=== PATIENT | female | born 1970 | race Hispanic/Latino ===

== ENCOUNTER 2019-10-22 19:23 | Emergency (ER) | payer OTHER ==
--- OUTSIDE RECORDS SUMMARY | 2019-10-22 19:44 | XMS REPORT | Continuity of Care Document ---
:1970 Author Organization [facility] Address [address] [place] [address] Allergies, Adverse Reactions, Alerts Allergen Type Severity Reaction Last Updated Verified Status Codeine ([id number]) Allergy Moderate HIVES June 24, 2019 No Active Hydrocodone ([id number]) Allergy Moderate HIVES June 24 020 No Active Medications No known medications. Problems No problem information available. Procedures Procedure Date Performed Status X-ray of chest, single view June 24, 2019 completed Relevant Diagnostic Tests and/or Laboratory Data Laboratory Results Test Date/Time Result Interpretation Reference Result Comment Performing Range Site White Blood Count June 10.2 4.0-11.5 MR , 2019 7:[place] [address] Red Blood Count June 4.98 3.80-5.20 [facility] , 2019 7:43[facility] [place] [address] Hemoglobin [place] 14.4 10.5-15.7 [facility], 2019 7:43[place] [address] Hematocrit [place] 43.3 34.0-50.0 [facility], 2019 7:43[facility] [place] X [address] Mean Corpuscular Janett 86.9 86-100 [facility], Volume 2019 7:43[facility] [place] [address] Mean Corpuscular June 28.9 26.2-33.4 [facility], Hemoglobin 2019 7:43[facility] [place] [address] Mean Corpuscular June 33.3 30-34 [facility], Hemoglobin 2019 Concent 7:43[place] [address] Red Cell June 12.8 12.0-15.5 [facility], Distribution 2019 Width 7:43[place] [address] Platelet Count June 236 165-450 [facility], 2019 7:43[facility] [place] [address] Mean Platelet Janett 8.6 9.4-12.6 [facility], [address] Volume 2019 7:43[place] [address] Neutrophils (%) Janett 83.1 44.4-80.1 [facility] , [address] (Auto) 2019 7:43[place] [address] Immature Janett 0.5 0.0-0.4 [facility], [address] Granulocyte % 2019 (Auto) 7:43[facility] [place] [address] Lymphocytes (%) Janett 12.7 10.0-50.0 [facility] , [address] (Auto) 2019 7:43[facility] [place] [address] Monocytes (%) [place]ett 3.3 3.6-12.0 [facility], [address] (Auto) 2019 7:43[facility] [place] [address] Eosinophils (%) [place]ett 0.1 0.0-5.4 [facility] , [address] (Auto) 2019 7:43[facility] [place] [address] Basophils (%) Janett 0.3 0.1-1.2 [facility], [address] (Auto) 2019 7:43[facility] [place] [address] Neutrophils # Janett 8.44 1.56-6.13 [facility], [address] (Auto) 2019 7:43[facility] [place] [address] Absolute Immature [place] 0.1 0.0-0.03 [facility], [address] Granulocyte (auto 2019 7:43[facility] [place] [address] Lymphocytes # Janett 1.3 1.18-3.74 [facility], [address] (Auto) 2019 7:43am [place] [address] Monocytes # Janett 0.34 0.24-0.86 [facility], [address] (Auto) 2019 7:43[facility] [place] [address] Eosinophils # Janett 0.01 0.04-0.36 [facility], [address] (Auto) 2019 7:43[facility] [place] [address] Basophils # Janett 0.03 0.01-0.08 [facility], [address] (Auto) 2019 7:43[facility] [place] [address] Nucleated Red Janett 0 0-0.2 [facility], [address] Cells % 2019 7:43[place] [address] Nucleated Red June 0 0 [facility], 104 Blood Cells # 2019 7:43[place] [address] D-Dimer June 405 <500 [facility], [address] 2019 7:42[place] [address] Prothrombin Time June 11.0 10.3-12.[address] [facility] 2019 LEVEL: 1.5 to 7:43am 1.9 [place] [address] normal range of PT Prothromb Time June 1.[address] [facility], 104 International 2019 therapeutic Ratio 7:43am [place] [address] patients receiving warfarin (coumadin) therapy: INR is 2.0 to 3.0Recommended range for patients with mechanical prosthetic heart valves: INR is 2.5 to 3.5 Activated Partial Janett 32.5 22.5-37.0 [facility], [facility] Thromboplast Time 2019 7:43am [place] [address] Random Glucose June 163 74-106 [facility], 104 2019 7:43[place] [address] Blood Urea June 12 6-20 [facility], 104 Nitrogen 2019 7:43am [place] [address] Serum Osmolality June 277 280-300 [facility], ST 2019 7:43[place] [address] Creatinine June 0.6 0.50-0.90 [facility], [address] 2019 7:43[place] [address] Glomerular Janett > 60.[address] [facility], [address] Filtration Rate 2019 REPORTED IN Calc 7:43am mL/min/1.73[place] [address] ormal GFR: >60mL/minModera tely decreased GFR: 30-59 mL/minSeverely decreased GFR: 15-29 mL/minKidney Failure (or Dialysis): <15 mL/minThe calculated eGFR is not valid for patients younger than 18 years or older than 75 years. BUN/Creatinine June 20.0 12-20 [facility], [address] Ratio 2019 7:43am [place] [address] Sodium Level June 137 135-145 [facility], 1 04 2019 7:43[facility] [place] [address] Potassium Level Janett 3.6 3.5-5.2 [facility] , 104 2019 7:43am [place] [address] Chloride Level June 98 98-108 [facility], 104 2019 7:43[facility] [place] [address] Carbon Dioxide June 26 21-32 [facility], 104 Level 2019 7:43[facility] [place] [address] Anion Gap Janett 16.6 12-20 [facility], 104 2019 7:43[facility] [place] [address] Calcium Level Janett 8.9 8.6-10.0 [facility], 104 2019 7:43[facility] [place] [address] Total Protein June 7.6 6.6-8.7 [facility], 104 2019 7:43[facility] [place] [address] Albumin Janett 4.2 3.5-5.2 [facility], 104 2019 7:43[facility] [place] [address] Globulin Janett 3.4 [facility], 104 2019 7:43[facility] [place] [address] Albumin/Globulin Janett 1.2 >1.0 [facility], 104 Ratio 2019 7:43am [place] [address] Total Bilirubin Janett 0.6 0.0-1.2 [facility] , 104 2019 7:43[facility] [place] [address] Aspartate Amino June 17 15-32 [facility] , 104 Transf (AST/SGOT) 2019 7:43am [place] [address] Alanine June 19 0-33 [facility], 104 Aminotransferase 2019 (ALT/SGPT) 7:43am [place] [address] WD-Jbu-D-Type June 175 0-125 [facility], 104 Natriuretic 2019 Peptide 7:43am [place] [address] Total Alkaline June 78 35-105 [facility], 104 Phosphatase 2019 7:43[facility] [place] [address] Creatine Kinase June 74 20-180 [facility] , 104 2019 7:43[place] [address] Troponin I June < 0.30 0.0-0.5 Published [facility], 104 2019 clinical 9:58am [place] [address] shown elevations of cTnI in patients with myocardial injury, as seen in unstable angina pectoris, cardiac contusions, and heart transplants. Elevations have also been seen in patients with rhabdomyolysis and polymyositis.El evated troponin levels point to myocardial injury, but are not necessarily indicative of an ischemic mechanism. The term MA should be used when there is evidence of cardiac damage, as detected by marker proteins in a clinical setting consistent with myocardial ischemia. If the clinical circumstance suggests that an ischemic mechanism is unlikely, other causes of cardiac injury should be considered.For diagnostic purposes, the results should always be assessed in conjunction with the patient's medical history, clinical examination and other findings. Creatine Kinase June 1.2 0.0-3.6 DIAGNOSTIC [facility], 104 [facility] 2019 CITERIA: 7:43am [facility] [place] [address] [facility] RELATIVE INDEX -----SUGGESTIVE OF NON-AMI < or = 5 N/AGRAY ZONE (INCONCLUSIVE) > 5 < or = 4SUGGESTIVE OF AMI >5 > 4 Health Concerns No known health concerns documented Chief Complaint and Reason for Visit Chief Complaint Chest Pain Reason for Visit [id number] Encounters Encounter Location(s) Arrival/Admit Date Discharge/Depart Date Provider(s) Departed [place] June 24, 2019 June 24, 2019 ALEX GOMEZ MD [facility] 7:37am 11:33am Ctr Assessments No Assessments Information Available Functional Status No Functional Status information available Goals No Goals Information Available Immunizations No Immunization Information Available Mental Status No Mental Status Information Available Medical Equipment No Medical Equipment Information available Insurance Providers Guarantor Evette Orozco Address [address] [facility] [id number] Contact Info. Home Phone: Payer Policy Id Coverage Id Subscriber's Subscriber Id Effective E xpiration Name Date Date [place] [id number] Tito Orozco [id number] June Plan of Treatment CONTINUE YOUR METOPROLOL-ER DAILY IN MORNINGS, & AMLODIPINE IN EVENINGS. TAKE BABY ASPIRIN 1 TAB (81mg ENTERIC COATED) DAILY WITH BREAKFAST. SEE YOUR PCP FOR REVIEW OF ANXIETY DISORDER CARE. 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 WORK EXCUSE FOR TWO DAYS Future Tests Future scheduled test information is unavailable Pending Tests Pending diagnostic test information is unavailable Future Visits Future appointment information is unavailable Referrals to Other Providers Reason for Referral Start Provider Provider Contact Provider Address Referral Date Information SUMAN ELLIOTT Work Phone: [phone] [facility] [place] [facility] [address] [facility] [address] Future Procedures Future procedure information is unavailable Future Medications Future medication information is unavailable Patient Instructions Nonspecific Chest Pain, Adult, Easy-to-R ead Hypertension, Adult Social History Smoking Status Status Date of Observation Ex-smoker (finding) June 24, 2019 7:37am Assigned Sex Female Vital Signs Vital Reading Result Collection Date/Time
[2019-10-22] MEDS ORDERED: NA CHLORIDE 0.9% 1,000 ML ONE (19:59)
[2019-10-22] MEDS ORDERED: ONDANSETRON 4 MG/2 ML VIAL ONE (19:59)
[2019-10-22] MEDS ORDERED: FAMOTIDINE 20 MG/2 ML VIAL IV ONE (19:59)
[2019-10-22 20:22] LABS: Absolute Lymphocytes (CBC) 3.6 K/uL (0.7-4.9); Basophils % 0.9 % (0-1.3); Hematocrit 48.3 % (36.0-45.0); Lymphocytes % 32.3 % (15.3-44.8); MPV 7.6 fL (7.6-11.3); RBC Red Blood Cell Count 5.48 M/uL (3.86-4.86)
[2019-10-22 20:31] LABS: Protime INR 1.03
--- NOTE | 2019-10-22 20:41 | RAD REPORT ---
EXAM DESCRIPTION: CT - Head Brain Wo Cont - 10/22/2019 8:28 pm CLINICAL HISTORY: Headache/prominent COMPARISON: None. TECHNIQUE: Computed axial tomography of the head was obtained. IV contrast was not requested. All CT scans are performed using dose optimization technique as appropriate and may include automated exposure control or mA/KV adjustment according to patient size. FINDINGS: An intracranial bleed is not seen . The ventricles are normal in caliber. No extra-axial fluid collection is noted. Fluid within the sinuses/ mastoids is not seen. IMPRESSION: No acute intracranial abnormality is seen. If patient's symptoms persist MRI of the bra in would be recommended.
[2019-10-22 20:42] LABS: ALT/SGPT 31 U/L (12-78); AST/SGOT 20 U/L (15-37); Albumin 3.9 g/dL (3.4-5.0); Alkaline Phosphatase 92 U/L (45-117); BUN Blood Urea Nitrogen 12 mg/dL (7-18); Bicarbonate 23 mmol/L (21-32); Bilirubin Direct 0.1 mg/dL (0-0.2); Bilirubin Total 0.6 mg/dL (0.2-1.0); Glucose Level 177 mg/dL (74-106); Lipase 119 U/L (73-393); Potassium 3.3 mmol/L (3.5-5.1); Protein, Total 8.4 g/dL (6.4-8.2); Sodium Level 136 mmol/L (136-145); Troponin (Emerg Dept Use Only) < 0.02 ng/mL (0.0-0.045)
[2019-10-22] MEDS ORDERED: NA CHLORIDE 0.9% 50 ML IV ONE (21:58)
[2019-10-22] MEDS ORDERED: METOCLOPRAMIDE 10 MG/2mL INJ ONE (21:58)
--- NOTE | 2019-10-22 22:05 | RAD REPORT ---
EXAM DESCRIPTION: CT - Abdomen Pelvis W Contrast - 10/22/2019 9:47 pm CLINICAL HISTORY: Abdominal pain COMPARISON: 2012 TECHNIQUE: Computed axial tomography of the abdomen pelvis was obtained. 100 cc Isovue-300 was admin istered intravenously. Oral contrast was not requested which limits evaluation of bowel. All CT scans are performed using dose optimization technique as appropriate and may include automated exposure control or mA/KV adjustment according to patient size. FINDINGS: Cholecystectomy Fatty liver. Spleen measures 14 centimeters. The pancreas, adrenals and left kidney appear unremarkable. A 17 millimeter mass extends off of the r ight kidney. Hounsfield unit 27. There is no evidence of diverticulitis. The evaluation the appendix limited secondary to the lack of contrast administration. An abnormal waldo endix is not visualized. Hysterectomy 3.6 x 2.1 centimeter soft tissue structure within the mesentert to the left of midline within the low er abdomen IMPRESSION: Mild splenomegaly 3.6 x 2.1. centimeter soft tissue structure within the mesentery of the lower abdomen to the left of midline probably a lymph node. Lymphoma and carcinoid are possibilities. 17 millimeter right renal mass does not represent a simple cyst. It may represent a benign complex cy st or cystic neoplasm. An unenhanced CT scan of the kidneys is recommended. This can be compared to t he current examination to determine if there is abnormal enhancement to suggest neoplasm
[2019-10-22 22:43] LABS: Urine Blood TRACE (NEG); Urine Glucose NEGATIVE (NEG); Urine Protein 2+ (NEG); Urine Specific Gravity 1.025 (1.005-1.030)
[2019-10-22] MEDS ORDERED: DIAZEPAM 10 MG/2 ML INJ SYRINGE ONE (23:00)
--- NOTE | 2019-10-23 00:10 | EDPHYS ---
Physician Documentation [facility] Name: Evette Bosch Age: 48 yrs Sex: Female : 1970 Arrival Date: 10/22/2019 Time: 19:26 Bed 25 Private MD: ED Physician Federico Rodriguez HPI: 10/21 19:45 This 48 yrs old Female presents to ER via Wheelchair with complaints of jmm Vomiting. 19:45 The patient presents to the emergency department with nausea, vomiting. Onset: The jmm symptoms/episode began/occurred acutely, just prior to arrival. Possible causes: unknown. The symptoms are aggravated by movement. This is a 48 year old female with a history of htn that presents to the ED with acute onset vomiting, dizziness beginning earlier today. Patient states her work has malfunctioning ac and would have to leave multiple times a day due to the heat. Symptoms worsened with movement. . 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 - Social history:: Patient/guardian denies using alcohol, street drugs, tobacco products, Smoking status: Patient denies any tobacco usage or history of. ROS: 19:45 Constitutional: Negative for fever, chills, and weight loss, Cardiovascular: Negative jmm for chest pain, palpitations, and edema, Respiratory: Negative for shortness of breath, cough, wheezing, and pleuritic chest pain. 19:45 Abdomen/GI: Positive for vomiting. 19:45 Neuro: Positive for dizziness. 19:45 All other systems are negative. Exam: 19:45 Constitutional: This is a well developed, well nourished patient who is awake, alert, jmm and in no acute distress. Head/Face: atraumatic. 19:45 ENT: Moist Mucus Membranes Neck: Trachea midline, Supple Chest/axilla: Normal chest wall appearance and motion. Cardiovascular: Regular rate and rhythm. No edema appreciated Respiratory: Normal respirations, no respiratory distress appreciated 19:45 Back: Normal ROM Skin: General appearance color normal MS/ Extremity: Moves all extremities, no obvious deformities appreciated, no edema noted to the lower extremities Neuro: Awake and alert, normal gait Psych: Behavior is normal, Mood is normal, Patient is cooperative and pleasant 19:45 Eyes: Extraocular movements: intact throughout, Nystagmus: horizontal nystagmus, fatigue able. 19:45 Abdomen/GI: Inspection: obese Bowel sounds: normal, Palpation: abdomen is soft and non-tender, in all quadrants. Vital Signs: 19:41 Resp 18; ll1 19:41 BP 193 / 111; Pulse 90; Resp 18; Temp 97.9; Pulse Ox 98% on R/A; vc 20:45 BP 188 / 82; Pulse 90; Resp 17; Pulse Ox 92% on R/A; vc 22:30 BP 186 / 101; Pulse 95; Resp 17; Pulse Ox 95% on R/A; vc 23:35 BP 163 / 99; Pulse 90; Resp 16; Pulse Ox 95% on R/A; vc MDM: 19:45 Patient medically screened. [facility] 10/22 00:06 Data reviewed: vital signs, nurses notes. Counseling: I had a detailed discussion with [facility] the patient and/or guardian regarding: the historical points, exam findings, and any diagnostic results supporting the discharge/admit diagnosis, lab results, radiology results, the need for outpatient follow up, to return to the emergency department if symptoms worsen or persist or if there are any questions or concerns that arise at home. ED course: Patient is able to tolerate PO in the ED after administration of valium. Patient able to ambulate in the ED. I suspect patient most likely has peripheral vertigo. Patient is advised to follow up with neuro for reevaluation. patient is otherwise given strict return precautions. patient understood and agrees with the plan of care. . 10/21 19:51 Order name: Basic Metabolic Panel; Complete Time: 20:44 [facility] 10/21 19:51 Order name: CBC with Diff; Complete Time: 20:41 [facility] 10/21 19:51 Order name: Creatinine for Radiology; Complete Time: 20:41 [facility] 10/21 19:51 Order name: Hepatic Function; Complete Time: 20:44 [facility] 10/21 19:51 Order name: Lipase; Complete Time: 20:44 [facility] 10/21 19:51 Order name: Troponin (emerg Dept Use Only); Complete Time: 20:44 [facility] 10/21 20:01 Order name: CPK; Complete Time: 20:42 [facility] 10/21 20:09 Order name: PT-INR; Complete Time: 20:41 [facility] 10/21 20:11 Order name: CT Head Brain wo Cont; Complete Time: 20:48 [facility] 10/21 21:06 Order name: CT Abd/Pelvis - IV Contrast Only; Complete Time: 22:10 [facility] 10/21 21:24 Order name: Urine Dipstick--Ancillary (enter results); Complete Time: 22:44 [facility] 10/21 19:51 Order name: IV Saline Lock; Complete Time: 20:01 [facility] 10/21 19:51 Order name: Labs collected and sent; Complete Time: 20:01 [facility] 10/21 19:51 Order name: Urine Dipstick-Ancillary (obtain specimen); Complete Time: 21:14 [facility] Administered Medications: 10/21 20:00 Drug: Pepcid 20 mg Route: IVP; Site: right antecubital; vc 22:09 Follow up: Response: No adverse reaction; Nausea is decreased vc 20:01 Drug: NS 0.9% 1000 ml Route: IV; Rate: 1 bolus; Site: right antecubital; vc 22:10 Follow up: IV Intake: 1000ml vc 10/22 00:34 Follow up: IV Status: Completed infusion; IV Intake: 1000ml vc 10/21 20:01 Drug: Zofran (Ondansetron) 4 mg Route: IVP; Site: right antecubital; vc 22:10 Follow up: Response: No adverse reaction; Nausea is decreased vc 21:57 Drug: Reglan 10 mg Route: IVP; Site: right antecubital; vc 23:00 Follow up: Response: No adverse reaction; Nausea unchanged vc 22:59 Drug: Valium 2 mg Route: IVP; Site: right antecubital; vc 10/22 00:30 Follow up: Response: No adverse reaction; Marked relief of symptoms vc Disposition: 02:26 Co-signature as Attending Physician, Federico Rodriguez MD I agree with the assessment and 4 plan of care. Disposition: 10/23/19 00:08 Discharged to Home. Impression: Vertigo. - Condition is Stable. - Discharge Instructions: Benign Positional Vertigo. - Prescriptions for Zofran ODT 4 mg Oral tablet,disintegrating - place 1 tablet by TRANSLINGUAL route every 4-6 hours; 20 tablet. Valium 5 mg Oral Tablet - take 1 tablet by ORAL route every 8 hours As needed; 20 tablet. - Medication Reconciliation Form, Thank You Letter, Antibiotic Education, Prescription Opioid Use, Work release form form. - Follow up: Arnulfo Brewer MD; When: 2 - 3 days; Reason: Recheck today's complaints, Continuance of care, Re-evaluation by your physician. Signatures: Dispatcher [employer] EDMS Maury Fair PA PA jmm Wadley, Terrence, MD MD tw4 Patience Shannon RN RN Uzma Riley RN RN ll1 Corrections: (The following items were deleted from the chart) 00:39 00:08 10/23/2019 00:08 Discharged to Home. Impression: Vertigo. Condition is Stable. vc Forms are Medication Reconciliation Form, Thank You Letter, Antibiotic Education, Prescription Opioid Use. Follow up: Arnulfo Brewer; When: 2 - 3 days; Reason: Recheck today's complaints, Continuance of care, Re-evaluation by your physician. aziza
--- NOTE | 2019-10-23 00:10 | ER ---
Nurse's Notes [facility] Name: Evette Bosch Age: 48 yrs Sex: Female : 1970 Arrival Date: 10/22/2019 Time: 19:26 Bed 25 Private MD: Diagnosis: Vertigo Presentation: 10/21 19:41 Chief complaint: Patient states: N/V began today. + active vomiting with diaphoresis. ll1 Onset of symptoms was October 22, 2019. 19:41 Method Of Arrival: Wheelchair ll1 19:41 Acuity: EDELMIRA 3 ll1 20:09 Coronavirus screen: Proceed with normal triage. Ebola Screen: No symptoms or risks vc identified at this time. Initial Sepsis Screen: Does the patient meet any 2 criteria? No. Patient's initial sepsis screen is negative. Does the patient have a suspected source of infection? No. Patient's initial sepsis screen is negative. Risk Assessment: Do you want to hurt yourself or someone else? Patient reports no desire to harm self or others. Triage Assessment: 20:07 General: Appears in no apparent distress. Behavior is calm, cooperative, appropriate vc for age. Pain: Complains of pain in left low back and right low back Pain began after patient began vomiting. GI: Abdomen is non-distended, obese, Pt is actively vomiting Reports nausea, vomiting. 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 - Social history:: Patient/guardian denies using alcohol, street drugs, tobacco products, Smoking status: Patient denies any tobacco usage or history of. Screenin:07 Abuse screen: Denies threats or abuse. Nutritional screening: No deficits noted. vc Tuberculosis screening: No symptoms or risk factors identified. Fall Risk None identified. Assessment: 20:00 General: Appears in no apparent distress. uncomfortable, ill, obese, Behavior is vc cooperative, anxious. Pain: Complains of pain in right low back and left low back. Neuro: Level of Consciousness is awake, alert, obeys commands, Oriented to person, place, time, situation, Appropriate for age. Cardiovascular: Capillary refill < 3 seconds Patient's skin is warm and dry. Respiratory: Airway is patent Respiratory effort is even, unlabored, Respiratory pattern is regular, symmetrical. : Urine is clear. EENT: No signs and/or symptoms were reported regarding the EENT system. Derm: Skin is diaphoretic, Skin temperature is hot. Musculoskeletal: Circulation, motion, and sensation intact. Range of motion: intact in all extremities. 21:00 Reassessment: Patient placed on bed [place]. Tolerated well. vc 21:14 Reassessment: Patient resting with eyes closed. GI: Patient has stopped vomiting. vc 21:55 Reassessment: Patient returned from CT via stretcher, vomiting. Provider notified, new vc orders as follows, 10 mg Reglan in 50 mls of NS. VORB. Will continue to monitor. 22:50 Reassessment: Patient placed on bed [place], tolerated well. vc 23:15 Reassessment: Patient appears in no apparent distress at this time. Patient and/or vc family updated on plan of care and expected duration. Pain level reassessed. Patient is resting with eyes closed, chest rising and falling equally. 23:48 Reassessment: PO challenge administered. Patient tolerated without vomiting. Patient to vc ambulate without vomiting at this time. 10/22 00:00 Reassessment: Patient ambulated around whole pod without vomiting. vc 00:30 Reassessment: Patient appears in no apparent distress at this time. Patient and/or vc family updated on plan of care and expected duration. Pain level reassessed. Patient states feeling better. Patient states symptoms have improved. 00:33 Reassessment: Patient has been discharged, patient sitting in room waiting on vc transportation. Vital Signs: 10/21 19:41 Resp 18; ll1 19:41 BP 193 / 111; Pulse 90; Resp 18; Temp 97.9; Pulse Ox 98% on R/A; vc 20:45 BP 188 / 82; Pulse 90; Resp 17; Pulse Ox 92% on R/A; vc 22:30 BP 186 / 101; Pulse 95; Resp 17; Pulse Ox 95% on R/A; vc 23:35 BP 163 / 99; Pulse 90; Resp 16; Pulse Ox 95% on R/A; vc ED Course: 19:26 Patient arrived in ED. ds1 19:35 Calcote, Patience, MONICA is Primary Nurse. vc 19:36 Maury Fair PA is PHCP. jmm 19:36 Federico Rodriguez MD is Attending Physician. jmm 19:42 Triage completed. ll1 19:43 Arm band placed on Patient placed in an exam room, on a stretcher. ll1 19:50 Patient has correct armband on for positive identification. Placed in gown. Bed in low vc position. Call light in reach. Pulse ox on. NIBP on. Cool cloth applied. 20:29 CT Head Brain wo Cont In Process Unspecified. EDMS 21:47 CT Abd/Pelvis - IV Contrast Only In Process Unspecified. EDMS 10/22 00:08 Arnulfo Brewer MD is Referral Physician. jmm 00:31 No provider procedures requiring assistance completed. IV discontinued, intact, vc bleeding controlled, No redness/swelling at site. Pressure dressing applied. Administered Medications: 10/21 20:00 Drug: Pepcid 20 mg Route: IVP; Site: right antecubital; vc 22:09 Follow up: Response: No adverse reaction; Nausea is decreased vc 20:01 Drug: NS 0.9% 1000 ml Route: IV; Rate: 1 bolus; Site: right antecubital; vc 22:10 Follow up: IV Intake: 1000ml vc 10/22 00:34 Follow up: IV Status: Completed infusion; IV Intake: 1000ml vc 10/21 20:01 Drug: Zofran (Ondansetron) 4 mg Route: IVP; Site: right antecubital; vc 22:10 Follow up: Response: No adverse reaction; Nausea is decreased vc 21:57 Drug: Reglan 10 mg Route: IVP; Site: right antecubital; vc 23:00 Follow up: Response: No adverse reaction; Nausea unchanged vc 22:59 Drug: Valium 2 mg Route: IVP; Site: right antecubital; vc 10/22 00:30 Follow up: Response: No adverse reaction; Marked relief of symptoms vc Intake: 10/21 22:10 IV: 1000ml; Total: 1000ml. vc 10/22 00:34 IV: 1000ml; Total: 2000ml. vc Outcome: 00:08 Discharge ordered by . jmm 00:32 Discharged to home via wheelchair. vc 00:32 Condition: improved 00:32 Discharge instructions given to patient, Instructed on discharge instructions, follow up and referral plans. medication usage, Demonstrated understanding of instructions, follow-up care, medications, Prescriptions given X 2. 00:39 Patient left the ED. vc Signatures: Dispatcher [employer] EDMS Maury Fair PA PA jmm Sanford, Demi ds1 Patience Shannon RN RN vc Lewis, Lynsay, RN RN ll1 Corrections: (The following items were deleted from the chart) 10/21 23:46 23:00 Reassessment: Patient appears in no apparent distress at this time. Patient vc and/or family updated on plan of care and expected duration. Pain level reassessed. Patient is resting with eyes closed, chest rising and falling equally. vc
[2019-10-23 02:06] VITALS: O2SAT 100
[2019-10-23 02:07] VITALS: BP 140/78; TEMP 98
== END 2019-10-23 00:39 | disposition home or self-care (01) ==
LOC: ER 19:23
DX: R42 Dizziness and giddiness (principal); I10 Essential (primary) hypertension; Z88.5 Allergy status to narcotic agent; Z88.8 Allergy status to other drugs, medicaments and biological substances
CPT/HCPCS: 96361; 85025; 80048; 36415; 82550; 85610; 80076; 81003; 84484; 83690; 70450; 74177; 96375; 96374; 99284; Q9967; J2765; J3360; J7030; J2405

== ENCOUNTER 2023-01-29 16:43 | Emergency (ER) | payer OTHER ==
--- OUTSIDE RECORDS SUMMARY | 2023-01-29 16:47 | XMS REPORT | Continuity of Care Document ---
:1970 Author Organization [facility] t Address [address] [place] [address] Care Team Providers Name Role Phone Lois Attending Clinician Unavailable VENTURA KEVIN Attending Clinician Unavailable Leonor Attending Clinician Unavailable Syl Lim Attending Clinician Unavailable Lois Admitting Clinician Unavailable Leonor Admitting Clinician Unavailable Payers Payer Name Policy Type Policy Number Effective Date Expiration Date S [place] [id number] 2022 00:00:00 [place] [id number] 2021 ADVANTAGE (HMO) 00:00:00 [facility] [id number] Problems Condition Condition Condition Status Onset Resolution Last Treating Co mments Source Name Details Category Date Date Treatment Clinician Date 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 00 al diarrhea Diarrhea Health Outreac [facility] Diabetes Diabetes Problem Active [place] mellitus Mellitus 10-24 da 00:00: [facility] Hypertensi Hypertensi Problem Active [facility] ve ve 10-24 da disorder Disorder 00:00: [facility] 00 al [facility] Allergies, Adverse Reactions, Alerts Allergy Allergy Status Severity Reaction(s) Onset Inactive Treating Comm ents Source Name Type Date Date Clinician Codeine Allergy Active Severe Other [place] to [facility] substanc [facility] Hydrocod Allergy Active Severe Other [place] one to da substanc [facility] Lisinopr Allergy Active Severe Other [place] to da substanc [facility] Social History Smoking Status Start Date Stop Date Source Never Smoker [facility] Former Smoker [facility] Medications Ordered Filled Start Stop Current Ordering Indication Dosage Frequency Signature Comments Components Source Medication Medication Date Date Medication? Clinician (SIG) Name Name clobetasol clobetasol No clobetasol [place] 0.05 % 0.05 % 0.05 % da topical topical topical Medica l ointment ointment ointment Tony up hydrochloro hydrochloro No 1 Q1D hydrochlor [place] thiazide 25 thiazide 25 othiazide da mg tablet mg tablet 25 mg Medi alfonso Take 1 Take 1 tablet Group tablet tablet Take 1 every day every day tablet by oral by oral every day route in route in by oral the morning the morning route in for 90 for 90 the days. days. morning for 90 days. Low Dose Low Dose No 1 Q1D Low Dose [place] Aspirin 81 Aspirin 81 Aspirin 81 da mg mg mg Medical tablet,lori tablet,lori tablet,del Group yed release yed release ayed Take 1 Take 1 release tablet tablet Take 1 every day every day tablet by oral by oral every day route. route. by oral route. metformin metformin No metformin [place] 1,000 mg 1,000 mg 1,000 mg da tablet TAKE tablet TAKE tablet Medical 1 TABLET BY 1 TABLET BY TAKE 1 Group MOUTH TWICE MOUTH TWICE TABLET BY DAILY DAILY MOUTH TWICE DAILY metoprolol metoprolol No metoprolol [place] tartrate 25 tartrate 25 tartrate da mg tablet mg tablet 25 mg Medi alfonso TAKE 1 TAKE 1 tablet Group TABLET BY TABLET BY TAKE 1 MOUTH TWICE MOUTH TWICE TABLET BY DAILY DAILY MOUTH TWICE DAILY hydrochloro hydrochloro No hydrochlor [place] thiazide 25 thiazide 25 othiazide da mg tablet mg tablet 25 mg [facility] Take 1 Take 1 tablet Group tablet tablet Take 1 every day every day tablet by oral by oral every day route in route in by oral the morning the morning route in for 90 for 90 the days. days. morning for 90 days. Low Dose Low Dose No 1 Q1D Low Dose [place] Aspirin 81 Aspirin 81 Aspirin 81 da mg mg mg Medical tablet,lori tablet,lori tablet,del Group yed release yed release ayed Take 1 Take 1 release tablet tablet Take 1 every day every day tablet by oral by oral every day route. route. by oral route. metformin metformin No metformin [place] 1,000 mg 1,000 mg 1,000 mg da tablet TAKE tablet TAKE tablet Medical 1 TABLET BY 1 TABLET BY TAKE 1 Group MOUTH TWICE MOUTH TWICE TABLET BY DAILY DAILY MOUTH TWICE DAILY metoprolol metoprolol No metoprolol [place] tartrate 25 tartrate 25 tartrate da mg tablet mg tablet 25 mg [facility] TAKE 1 TAKE 1 tablet Group TABLET BY TABLET BY TAKE 1 MOUTH TWICE MOUTH TWICE TABLET BY DAILY DAILY MOUTH TWICE DAILY hydrochloro hydrochloro No hydrochlor [place] thiazide 25 thiazide 25 othiazide da mg tablet mg tablet 25 mg [facility] TAKE 1 TAKE 1 tablet Group TABLET BY TABLET BY TAKE 1 MOUTH ONCE MOUTH ONCE TABLET BY DAILY IN DAILY IN MOUTH ONCE THE MORNING THE MORNING DAILY IN FOR 90 DAYS FOR 90 DAYS THE MORNING FOR 90 DAYS Low Dose Low Dose No 1 Q1D Low Dose [place] Aspirin 81 Aspirin 81 Aspirin 81 da mg mg mg Medical tablet,lori tablet,lori tablet,del Group yed release yed release ayed Take 1 Take 1 release tablet tablet Take 1 every day every day tablet by oral by oral every day route. route. by oral route. metformin metformin No metformin [place] 1,000 mg 1,000 mg 1,000 mg da tablet TAKE tablet TAKE tablet Medical 1 TABLET BY 1 TABLET BY TAKE 1 Group MOUTH TWICE MOUTH TWICE TABLET BY DAILY DAILY MOUTH TWICE DAILY metoprolol metoprolol No metoprolol [place] tartrate 25 tartrate 25 tartrate da mg tablet mg tablet 25 mg [facility] TAKE 1 TAKE 1 tablet Group TABLET BY TABLET BY TAKE 1 MOUTH TWICE MOUTH TWICE TABLET BY DAILY DAILY MOUTH TWICE DAILY hydrochloro hydrochloro No hydrochlor [place] thiazide 25 thiazide 25 othiazide da mg tablet mg tablet 25 mg [facility] TAKE 1 TAKE 1 tablet Group TABLET BY TABLET BY TAKE 1 MOUTH ONCE MOUTH ONCE TABLET BY DAILY IN DAILY IN MOUTH ONCE THE MORNING THE MORNING DAILY IN FOR 90 DAYS FOR 90 DAYS THE MORNING FOR 90 DAYS Low Dose Low Dose No 1 Q1D Low Dose [place] Aspirin 81 Aspirin 81 Aspirin 81 da mg mg mg Medical tablet,lori tablet,lori tablet,del Group yed release yed release ayed Take 1 Take 1 release tablet tablet Take 1 every day every day tablet by oral by oral every day route. route. by oral route. metformin metformin No metformin [place] 1,000 mg 1,000 mg 1,000 mg da tablet TAKE tablet TAKE tablet Medical 1 TABLET BY 1 TABLET BY TAKE 1 Group MOUTH TWICE MOUTH TWICE TABLET BY DAILY DAILY MOUTH TWICE DAILY metoprolol metoprolol No metoprolol [place] tartrate 25 tartrate 25 tartrate da mg tablet mg tablet 25 mg [facility] TAKE 1 TAKE 1 tablet Group TABLET BY TABLET BY TAKE 1 MOUTH TWICE MOUTH TWICE TABLET BY DAILY DAILY MOUTH TWICE DAILY Low Dose Low Dose No 1 Q1D Low Dose [place] Aspirin 81 Aspirin 81 Aspirin 81 da mg mg mg Medical tablet,lori tablet,lori tablet,del Group yed release yed release ayed Take 1 Take 1 release tablet tablet Take 1 every day every day tablet by oral by oral every day route. route. by oral route. metformin metformin No metformin [place] 1,000 mg 1,000 mg 1,000 mg da tablet TAKE tablet TAKE tablet Medical 1 TABLET BY 1 TABLET BY TAKE 1 Group MOUTH TWICE MOUTH TWICE TABLET BY DAILY DAILY MOUTH TWICE DAILY metoprolol metoprolol No metoprolol [place] tartrate 25 tartrate 25 tartrate da mg tablet mg tablet 25 mg [facility] TAKE 1 TAKE 1 tablet Group TABLET BY TABLET BY TAKE 1 MOUTH TWICE MOUTH TWICE TABLET BY DAILY DAILY MOUTH TWICE DAILY aspirin aspirin No aspirin [facility] [facility] hydrochloro hydrochloro No 1 Q1D hydrochlor [place] thiazide 25 thiazide 25 othiazide da mg tablet mg tablet 25 mg [facility] rn endoscopy Take 1 Take 1 tablet al tablet tablet Take 1 Health every day every day tablet Out reac by oral by oral every day h route. route. by oral Program route. metformin metformin No 1 BID metformin [place] 1,000 mg 1,000 mg 1,000 mg da tablet Take tablet Take tablet [facility] 1 tablet 1 tablet Take 1 al twice a day twice a day tablet Health by oral by oral twice a Outrea c route. route. day by h oral Program route. metoprolol metoprolol No 1 Q1D metoprolol [place] succinate succinate succinate da ER 25 mg ER 25 mg ER 25 mg Epi scop tablet,exte tablet,exte tablet,ext al nded nded ended Health release 24 release 24 release 24 Outreac hr Take 1 hr Take 1 hr Take 1 h tablet tablet tablet Program every day every day every day by oral by oral by oral route. route. route. Sutab Sutab No 12 BID Sutab [place] 1.479-0.188 1.479-0.188 1.479-0.18 da -0.225 gram -0.225 gram 8-0.225 [facility] tablet Take tablet Take gram a l 12 tablets 12 tablets tablet H ealth twice a day twice a day Take 12 Outreac by oral by oral tablets h route for 1 route for 1 twice a Program day. day. day by oral route for 1 day. aspirin aspirin No aspirin [place] [facility] hydrochloro hydrochloro No 1 Q1D hydrochlor [place] thiazide 25 thiazide 25 othiazide da mg tablet mg tablet 25 mg Epis rn endoscopy Take 1 Take 1 tablet al tablet tablet Take 1 Health every day every day tablet Out reac by oral by oral every day h route. route. by oral Program route. metformin metformin No 1 BID metformin [place] 1,000 mg 1,000 mg 1,000 mg da tablet Take tablet Take tablet [facility] 1 tablet 1 tablet Take 1 al twice a day twice a day tablet Health by oral by oral twice a Outrea c route. route. day by h oral Program route. metoprolol metoprolol No 1 Q1D metoprolol [place] succinate succinate succinate da ER 25 mg ER 25 mg ER 25 mg Epi scop tablet,exte tablet,exte tablet,ext al nded nded ended Health release 24 release 24 release 24 Outreac hr Take 1 hr Take 1 hr Take 1 h tablet tablet tablet Program every day every day every day by oral by oral by oral route. route. route. omeprazole omeprazole No omeprazole [place] 20 mg 20 mg 20 mg da capsule,del capsule,del capsule,de [facility] ayed ayed layed al release release release Health TAKE 1 TAKE 1 TAKE 1 Outreac CAPSULE BY CAPSULE BY CAPSULE BY h MOUTH ONCE MOUTH ONCE MOUTH ONCE Program DAILY DAILY DAILY Vital Signs Vital Name Observation Time Observation Value Comments Source BP Diastolic 2022-11-17 00:00:00 97 mm[Hg] [facility] Height 2022-11-17 00:00:00 66 [in_i] [facility] BMI (Body Mass 2022-11-17 00:00:00 47.4 kg/m2 [facility] [employer] [facility]) Health Outreach Program BP Systolic 2022-11-17 00:00:00 166 mm[Hg] [facility] Body Weight 2022-11-17 00:00:00 293.4 [lb_av] [facility] Height 2022-10-24 00:00:00 66 [in_i] [facility] BMI (Body Mass 2022-10-24 00:00:00 48.2 kg/m2 [facility] [employer] [facility]) [facility] Outreach [facility] Body Weight 2022-10-24 00:00:00 298.4 [lb_av] [facility] BP Diastolic 2022-10-13 00:00:00 90 mm[Hg] [facility] Height 2022-10-13 00:00:00 66 [in_i] [facility] BMI (Body Mass 2022-10-13 00:00:00 48.3 kg/m2 [facility] [employer] [facility] Medical Index) Group BP Systolic 2022-10-13 00:00:00 164 mm[Hg] [facility] Body Weight 2022-10-13 00:00:00 4791 [oz_av] [facility] BP Diastolic 2022-09-29 00:00:00 123 mm[Hg] [facility] Height 2022-09-29 00:00:00 66 [in_i] [facility] BMI (Body Mass 2022-09-29 00:00:00 48 kg/m2 [facility] Medical Index) Group BP Systolic 2022-09-29 00:00:00 183 mm[Hg] [facility] Body Weight 2022-09-29 00:00:00 4755 [oz_av] [facility] BP Diastolic 2022-05-18 00:00:00 90 mm[Hg] [facility] Height 2022-05-18 00:00:00 66 [in_i] [facility] BMI (Body Mass 2022-05-18 00:00:00 46.9 kg/m2 [facility] Medical Index) Group BP Systolic 2022-05-18 00:00:00 160 mm[Hg] [facility] Body Weight 2022-05-18 00:00:00 4645 [oz_av] [facility] BP Diastolic 2022-03-07 00:00:00 105 mm[Hg] [facility] Height 2022-03-07 00:00:00 66 [in_i] [facility] BMI (Body Mass 2022-03-07 00:00:00 47.2 kg/m2 [facility] Medical Index) Group BP Systolic 2022-03-07 00:00:00 205 mm[Hg] [facility] Body Weight 2022-03-07 00:00:00 4677 [oz_av] [facility] BMI (Body Mass 2022-01-05 00:00:00 47.6 kg/m2 [facility] Medical Index) Group Body Weight 2022-01-05 00:00:00 4720 [oz_av] [facility] Height 2022-01-05 00:00:00 66 [in_i] [facility] BP Diastolic 2021-05-06 00:00:00 101 mm[Hg] [facility] Height 2021-05-06 00:00:00 66 [in_i] [facility] BMI (Body Mass 2021-05-06 00:00:00 47.1 kg/m2 [facility] Medical Index) Group BP Systolic 2021-05-06 00:00:00 184 mm[Hg] [facility] Body Weight 2021-05-06 00:00:00 4672 [oz_av] [facility] BP Diastolic 2020-10-08 00:00:00 80 mm[Hg] [facility] Height 2020-10-08 00:00:00 66 [in_i] [facility] BMI (Body Mass 2020-10-08 00:00:00 45.8 kg/m2 [facility] Medical Index) Group BP Systolic 2020-10-08 00:00:00 132 mm[Hg] [facility] Body Weight 2020-10-08 00:00:00 4544 [oz_av] [facility] BP Diastolic 2019-12-03 00:00:00 62 mm[Hg] [facility] Height 2019-12-03 00:00:00 66 [in_i] [facility] BMI (Body Mass 2019-12-03 00:00:00 48.1 kg/m2 [facility] Medical Index) Group BP Systolic 2019-12-03 00:00:00 150 mm[Hg] [facility] Body Weight 2019-12-03 00:00:00 298 [lb_av] [facility] Procedures Procedure Date / Time Performing Source Performed Clinician Esophagogastroduodenoscopy 2022-11-07 [facility] 00:00:00 [facility] Colonoscopy 2022-11-07 [facility] 00:00:00 [facility], abdomen + pelvis, w/ contrast 2022-09-29 [facility] 00:00:[address], abdomen + pelvis, w/wo 2019-11-15 [place] contrast 00:00:[address], kidney, w/o contrast 2019-11-14 [place] [facility] 00:00:00 Medical Group Cholecystectomy [facility] Breast Biopsy [facility] Knee Arthroscopy/surgery [place] [facility] Hernia Repair [facility] Hysterectomy [facility] Tonsillectomy [facility] Plan of Care Planned Activity Planned Date Details Comments Source Diagnostic Test 2022-10-24 adenovirus C(40) + B(41) [facility] Pending 00:00:00 Ag, qual [facility] stool [code = adenovirus Out reach Program C(40) + B(41) Ag, qual immunoassay, stool] Diagnostic Test 2022-10-24 C diff toxin A+B, qual [place] Pending 00:00:00 IA, stool [code = C diff Epi [facility] Health toxin A+B, qual IA, Outreach Program stool] Diagnostic Test 2022-10-24 calprotectin, stool [place] Pending 00:00:00 [code = calprotectin, [facility] stool] Outreach Progra m Diagnostic Test 2022-10-24 cryptosporidium sp Ag, [place] Pending 00:00:00 immunoassay, stool [code Epi sc[facility] Health = cryptosporidium sp Ag, Out reach Program immunoassay, stool] Diagnostic Test 2022-10-24 cyclospora smear, stool [place] Pending 00:00:00 [code = cyclospora [facility] smear, stool] Outreach Progr am Diagnostic Test 2022-10-24 shiga toxins (1+2), [place] Pending 00:00:00 qualitative, [facility] immunoassay, stool [code Out reach Program = shiga toxins (1+2), qualitative, immunoassay, stool] Diagnostic Test 2022-10-24 pancreatic elastase, Lara roxanna Pending 00:00:00 quant, stool [code = [facility] pancreatic elastase, Outreac h Program quant, stool] Diagnostic Test 2022-10-24 giardia lamblia Ag, EIA, [facility] Pending 00:00:00 stool [code = giardia [facility] lamblia Ag, EIA, stool] Outr each Program Diagnostic Test 2022-10-24 norovirus genogroups I + [facility] Pending 00:00:00 II RNA panel, POLO+probe, [facility] stool [code = norovirus Outr each Program genogroups I + II RNA panel, POLO+probe, stool] Diagnostic Test 2022-10-24 O&P (ova & parasites), [place] Pending 00:00:00 stool [code = O&P (ova & Epi scopal Health parasites), stool] Outreach Program Diagnostic Test 2022-10-24 rotavirus Ag, qual, [place] Pending 00:00:00 immunoassay, stool [code [facility] = rotavirus Ag, qual, Outrea Program immunoassay, stool] Diagnostic Test 2022-10-24 gastrointestinal [place] Pending 00:00:00 pathogens panel, [facility] culture, stool [code = [facility] Program gastrointestinal pathogens panel, culture, stool] Diagnostic Test 2022-10-24 anca panel, serum [code [place] Pending 00:00:00 = anca panel, serum] [facility] Outreach Progra m Diagnostic Test 2022-10-24 Vela's yeast Ab, [place] Pending 00:00:00 quantitative, serum [facility] [code = Vela's yeast Outrea Program Ab, quantitative, serum] Diagnostic Test 2022-10-24 C reactive protein, QN, M josegorolandoa Pending 00:00:00 serum or plasma [code = [facility] C reactive protein, QN, Outr each Program serum or plasma] Diagnostic Test 2022-10-24 ESR (erythrocyte [place] Pending 00:00:00 sedimentation rate), [facility] blood [code = ESR Outreach P rogram (erythrocyte sedimentation rate), blood] Diagnostic Test 2022-10-24 celiac disease IgA + HLA [facility] Pending 00:00:00 typing + serology panel, [facility] blood or tissue [code = Outr each Program celiac disease IgA + HLA typing + serology panel, blood or tissue] Diagnostic Test 2022-10-24 unlisted lab [code = Lara roxanna Pending 00:00:00 unlisted lab] [facility] Outreach Progra m Diagnostic Test 2022-10-24 CBC w/ auto diff [code = [facility] Pending 00:00:00 CBC w/ auto diff] [facility] Outreach Progra m Diagnostic Test 2022-09-29 hemoglobin A1c, QN, [place] [facility] Pending 00:00:00 blood [code = hemoglobin Tony up A1c, QN, blood] Diagnostic Test 2022-09-29 CMP, serum or plasma L[facility] roxanna Medical Pending 00:00:00 [code = CMP, serum or Group plasma] Diagnostic Test 2022-09-29 lipid panel, serum [code [facility] Pending 00:00:00 = lipid panel, serum] Group Diagnostic Test 2022-09-29 microalbumin/creatinine, [facility] Pending 00:00:00 ratio panel, urine [code Tony up = microalbumin/creatinine, ratio panel, urine] Future Appointment 2023-02-12 Sly Lim, [address] [facility] 00:00:00 [facility]; [address], [place] [address] Encounters Start End Encounter Admission Attending Care Care Encounter Source Date/Time Date/Time Type Type Clinicians Facility Department ID 2022-11-18 2022-11-18 Outpatient Ferguson_Ro [facility] [id number] [place] 00:00:00 00:00:00 bin [id number] [facility] 2022-11-17 2022-11-17 Outpatient Mikalguson_Ro [facility] [id number] [place] 00:00:00 00:00:00 bin [id number] [facility] 2022-11-17 2022-11-17 Ventura Sanchez [facility] [place] - [id number] [place] 00:00:00 00:00:00 Tae Kevin MD: [id number] [facility] Ep[facility] rn endoscopy [place] [address] [facility] [address], [facility] Program [id number] , Ph. 2022-11-16 2022-11-16 Outpatient Ferguson_[facility] [id number] [place] 00:00:00 00:00:00 bin [id number] [facility] 2022-11-07 2022-11-07 Outpatient ADAM FIELDS [facility] [id number] [place] 10:54:00 10:54:00 VENTURA [id number] [facility]ly [facility] 2022-10-24 2022-10-24 Outpatient Mikalguson_Ro KYHOP [facility] [id number] [place] 00:00:00 00:00:00 bin [id number] [facility] 2022-10-24 2022-10-24 Ventura Sanchez [facility] [place] - [id number] [place] 00:00:00 00:00:00 Tae Kevin MD: [id number] [facility] Ep[facility] rn endoscopy [place] [address] [facility], [facility] [address], [place] [facility] [place] Program [id number] , Ph. 2022-10-20 2022-10-20 Outpatient Ferguson_Ro [facility] [id number] [place] 00:00:00 00:00:00 bin [id number] [facility] 2022-10-17 2022-10-17 Outpatient Ferguson_[facility] [id number] [place] 00:00:00 00:00:00 bin [id number] [facility] 2022-10-17 2022-10-17 Outpatient Ferguson_[facility] [id number] [place] 00:00:00 00:00:00 bin [id number] [facility] 2022-10-13 2022-10-13 Outpatient Zuniga_F [facility] MMG [id number] [place] 00:00:00 00:00:00 0427 [facility] 2022-10-13 2022-10-13 Sly [facility] [place] - [id number] [place] 00:00:00 00:00:00 Horace Elaine Medical Medical MD: [address] [facility], Family [address], [place] [address] , Ph. 2022-10-12 2022-10-12 Outpatient Dedrick, [facility] [id number] [place] 07:34:00 07:34:00 Sly [id number] [facility] 2022-10-07 2022-10-07 Outpatient Zuniga_F MMG [id number] [id number] [place] 00:00:00 00:00:00 0421 [facility] 2022-10-07 2022-10-07 Outpatient Zuniga_F [facility] MMG [id number] [place] 00:00:00 00:00:00 0426 [facility] 2022-10-06 2022-10-06 Outpatient JED Lim [facility] [id number] [place] 08:07:00 08:07:00 Sly [id number] [facility] 2022-09-29 2022-09-29 Outpatient Zuniga_F MMG [id number] [id number] [place] 00:00:00 00:00:00 0413 da [facility] 2022-09-29 2022-09-29 Sly [facility] [place] - [id number] [place] 00:00:00 00:00:00 Mary Kay Cam Medical MD: [address] [address], [place] [address] , Ph. 2022-09-23 2022-09-23 Outpatient Zuniga_F MMG [id number] [id number] [place] 00:00:00 00:00:00 [id number] [facility] 2022-05-18 2022-05-18 Outpatient Zuniga_F MMG MMG [id number] [place] 00:00:00 00:00:00 1130 [facility] 2022-05-18 2022-05-18 Outpatient Zuniga_F MMG MMG [id number] [place] 00:00:00 00:00:00 1214 [facility] 2022-05-18 2022-05-18 Sly [facility] [place] - [id number] [place] 00:00:00 00:00:00 Mary Kay Cam MD: [address] [facility] [address], [place] [address] , Ph. 2022-03-07 2022-03-07 Outpatient Zuniga_F MMG MMG [id number] [place] 00:00:00 00:00:00 [id number] [facility] 2022-03-07 2022-03-07 Sly [facility] [place] - [id number] [place] 00:00:00 00:00:00 Mary Kay Cam Medical MD: [address] [facility] [address], [place] [address] , Ph. 2022-03-01 2022-03-01 Outpatient Zuniga_F MMG MMG [id number] [place] 00:00:00 00:00:00 [id number] Medical Group 2022-01-05 2022-01-05 S[place] Zuniga_F [place] - [id number] [place] 00:00:00 00:00:00 Horace Moon 0720 Mary Kay Elaine Medical MD: [address] [place] [address], [place] [address] , Ph. 2021-12-30 2021-12-30 Outpatient Zuniga_F MMG MMG [id number] [place] 11:02:00 11:02:00 0714 Medical Group 2021-05-06 2021-05-06 S[place] Zuniga_[place] - [id number] [place] 00:00:00 00:00:00 Horace Moon 1118 Mary Kay Elaine Medical MD: [address] [place] [address], [place] [address] , Ph. 2021-05-04 2021-05-04 Outpatient Zuniga_F MMG MMG [id number] [place] 09:36:00 09:36:00 1116 Medical Group 2020-12-12 2020-12-12 Outpatient Zuniga_F MMG MMG [id number] [place] 03:24:00 03:24:00 0626 [facility] 2020-11-08 2020-11-08 Outpatient Zuniga_F MMG MMG [id number] [place] 01:05:00 01:05:00 0523 [facility] 2020-11-05 2020-11-05 Outpatient Zuniga_F MMG MMG [id number] [place] 11:11:00 11:11:00 0520 [facility] 2020-10-10 2020-10-10 Outpatient Zuniga_F MMG MMG [id number] [place] 04:11:00 04:11:00 0424 [facility] 2020-10-08 2020-10-08 Lsy Zuniga_[place] - [id number] [place] 00:00:00 00:00:00 Horace Moon 0422 Mary Kay Elaine MD: [address] [place] [address] [address] [address], [place] [address] , Ph. 2020-10-02 2020-10-02 Outpatient [facility] [id number] [place] 12:40:00 12:40:00 0416 [facility] 2020-09-30 2020-09-30 Outpatient [facility]G [id number]- [id number] [place] 04:09:00 04:09:00 0414 [facility] 2020-05-06 2020-05-06 Outpatient [facility]G [id number] [place] 02:30:00 02:30:00 1118 [facility] 2020-02-26 2020-02-26 Outpatient [facility] MMG [id number] 2019 [place] 12:41:00 12:41:00 0909 [facility] 2020-01-22 2020-01-22 Outpatient [facility]_F [facility]G [id number]- 2019 [place] 12:39:00 12:39:00 0805 [facility] 2019-12-18 2019-12-18 Outpatient [facility] [id number] [place] 12:51:00 12:51:00 0701 [facility] 2019-12-03 2019-12-03 [place] - [id number] [place] 00:00:00 00:00:00 Behzad Moon 0616 fredis Camejo MD: Mary Kay moreno [address] [place] [address] [address], [place] [address] , Ph. [phone] 2019-11-30 2019-11-30 Outpatient [facility]F [facility] [id number] [place] 11:07:00 11:07:00 0613 [facility] Group 2019-11-19 2019-11-19 Outpatient [facility]un[facility]_F [facility]G [facility] [id number] [place] 09:58:00 09:58:00 0602 Medical Group 2019-11-14 2019-11-14 [place] - [id number] 20 [place] 00:00:00 00:00:00 Horace Moon 0528 fredis Lim [facility] MD: [address] [place] [address], [place] [address] , Ph. 2019-10-31 2019-10-31 [place]un[place] - [id number] [place] 00:00:00 00:00:00 Horace Moon 0514 Mary Kay Elaine Medical MD: [address] [place] [address] [address], [place] [address] , Ph. 2019-10-30 2019-10-30 [facility] [id number] [place] 12:37:00 12:37:00 0513 [facility] Group 2019-10-28 2019-10-28 [facility] [id number] [place] 12:33:00 12:33:00 0511 Medical Group 2019-10-24 2019-10-24 Outpatient [facility]_F [facility] [id number] [place] 10:47:00 10:47:00 0507 Medical Group Results Test Description Test Time Test Comments Results Result Comments Source Norovirus genogroups I and II RNA panel - Stool by POLO with 2022-11-04 00:00:00 probe detection Test Item Value Reference Range Interpretation Comme nts Norovirus genogroup I RNA [Presence] in Stool by POLO with pr obe negative negative detection (test code = 53571-4) Norovirus genogroup II RNA [Presence] in Stool by POLO with negative negative probe detection (test code = 73472-8) [facility]Mass/mass[facility] Stool 2022-11-01 00:00:00 Test Item Value Reference Range Interpretation Comments Calprotectin [Mass/mass] in Stool 64 ug/g 0-120 (test code = 93040-7) [facility]Elastase.pancreatic [Mass/mass] in [id number] 00:00:00 Test Item Value Reference Range Interpretation Comments Elastase.pancreatic 331 ug elast./g >200 [Mass/mass] in Stool (test code = 67969-5) [facility]Clostridioides difficile toxin A+B [Presence] in Stool by [id number] 00:00:00 Test Item Value Reference Range Interpretation Comments Clostridioides difficile toxin A+B negative negative [Presence] in Stool by Immunoassay (test code = 85715-4) Clostridioides difficile toxin B comment [Presence] in Stool by Cytotoxin tissue culture assay (test code = 06768-2) [facility]Cyclospora sp identified in Stool by Acid fast [id number] 00:00:00 Test Item Value Reference Range Interpretation Comments Cyclospora sp identified in Stool none seen none seen by Acid fast stain (test code = 80135-9) [facility]Ova and parasites identified in Stool by [id number] 00:00:00 Test Item Value Reference Range Interpretation Comments Microscopic observation final report [Identifier] in Unspecified specimen by Ova & Parasite Preparation (test code = 673-4) Ova and parasites identified in comment Stool by Concentration (test code = 04623-0) [facility]Gastrointestinal pathogens panel - Stool by [id number] 00:00:00 Test Item Value Reference Range Interpretation Comments Salmonella and Shigella sp final report identified in Stool by Organism specific culture (test code = 35531-8) Bacteria identified in Specimen comment by Culture (test code = 6463-4) Campylobacter sp identified in final report Stool by Organism specific culture (test code = 6331-3) Escherichia coli shiga-like negative negative toxin [Presence] in Stool by Immunoassay (test code = 29291-4) [facility]Cryptosporidium sp Ag [Presence] in Stool by [id number] 00:00:00 Test Item Value Reference Range Interpretation Comments Cryptosporidium sp Ag [Presence] in negative negative Stool by Immunoassay (test code = 6371-9) [facility]healthAdenovirus 40+41 Ag [Presence] in Stool by [id number] 00:00:00 Test Item Value Reference Range Interpretation Comments Adenovirus 40+41 Ag [Presence] in negative negative Stool by Immunoassay (test code = 6306-5) [facility]Rotavirus Ag [Presence] in Stool by [id number] 00:00:00 Test Item Value Reference Range Interpretation Comments Rotavirus Ag [Presence] in Stool by negative negative Immunoassay (test code = 5880-0) [facility]healthGiardia lamblia Ag [Presence] in Stool by [id number] 00:00:00 Test Item Value Reference Range Interpretation Comments Giardia lamblia Ag [Presence] in negative negative Stool by Immunoassay (test code = 6412-1) [facility]Celiac disease IgA and HLA typing and serology panel - Blood or [id number] 00:00:00 Test Item Value Reference Range Interpretation Comments Gliadin peptide IgA Ab 11 units 0-19 [Units/volume] in Serum (test code = 94701-4) Gliadin peptide IgG Ab 2 units 0-19 [Units/volume] in Serum (test code = 64752-1) Tissue transglutaminase IgA Ab <2 0-3 [Units/volume] in Serum (test code = 89602-9) Tissue transglutaminase IgG Ab 6 U/mL 0-5 H [Units/volume] in Serum (test code = 33783-7) Endomysium IgA Ab [Presence] in negative negative Serum (test code = 57476-4) IgA [Mass/volume] in Serum or 506 mg/dL 87-352 H Plasma (test code = 2458-8) [facility] panel, [id number] 00:00:00 Test Item Value Reference Range Interpretation Comments Myeloperoxidase Ab <0.2 0.0-0.9 [Units/volume] in Serum by Immunoassay (test code = 10327-7) Proteinase 3 Ab <0.2 0.0-0.9 [Units/volume] in Serum by Immunoassay (test code = 99182-9) Neutrophil cytoplasmic <1:20 See_Comment [Aut omated message] Ab.classic [Titer] in Serum The system which by Immunofluorescence (test generated this code = 54878-2) result trans mitted reference range : neg:<1:20. The reference range was not used to interpret this result as normal/abnormal . Neutrophil cytoplasmic <1:20 See_Comment [Aut omated message] Ab.perinuclear [Titer] in Th e system which Serum by Immunofluorescence generated this (test code = 28062-6) result transmitted reference range : neg:<1:20. The reference range was not used to interpret this result as normal/abnormal . Neutrophil cytoplasmic <1:20 See_Comment [Aut omated message] Ab.perinuclear.atypical The system which [Titer] in Serum by generate d this Immunofluorescence (test res ult transmitted code = 72073-0) reference ra nge: neg:<1:20. The reference range was not used to interpret this result as normal/abnormal . [facility]healthBaker's yeast Ab [Units/volume] in [id number] 00:00:00 Test Item Value Reference Range Interpretation Comments Vela's yeast IgG Ab 55.7 units 0.0-24.9 H [Units/volume] in Serum (test code = 6713-2) Vela's yeast IgA Ab <20.0 0.0-24.9 [Units/volume] in Serum (test code = 77435-2) [facility]CB W Auto Differential panel - Blood 2022-10-25 00:00:00 Test Item Value Reference Range Interpretation Comments Leukocytes [#/volume] in Blood 7.3 x10e3/uL 3.4-10.8 by Automated count (test code = 6690-2) Erythrocytes [#/volume] in 4.98 x10e6/uL 3.77-5.28 Blood by Automated count (test code = 789-8) Hemoglobin [Mass/volume] in 14.4 g/dL 11.1-15.9 Blood (test code = 718-7) Hematocrit [Volume Fraction] of 44.0 % 34.0-46.6 Blood by Automated count (test code = 4544-3) Erythrocyte mean corpuscular 88 fL 79-97 volume [Entitic volume] by Automated count (test code = 787-2) Erythrocyte mean corpuscular 28.9 pg 26.6-33.0 hemoglobin [Entitic mass] by Automated count (test code = 785-6) Erythrocyte mean corpuscular 32.7 g/dL 31.5-35.7 hemoglobin concentration [Mass/volume] by Automated count (test code = 786-4) Erythrocyte distribution width 13.1 % 11.7-15.4 [Ratio] by Automated count (test code = 788-0) Platelets [#/volume] in Blood 280 x10e3/uL 150-450 by Automated count (test code = 777-3) Neutrophils/100 leukocytes in 62 % not estab. Blood by Automated count (test code = 770-8) Lymphocytes/100 leukocytes in 29 % not estab. Blood by Automated count (test code = 736-9) Monocytes/100 leukocytes in 6 % not estab. Blood by Automated count (test code = 5905-5) Eosinophils/100 leukocytes in 2 % not estab. Blood by Automated count (test code = 713-8) Basophils/100 leukocytes in 1 % not estab. Blood by Automated count (test code = 706-2) immature cells (test code = relay shop supervisor immature cells) Neutrophils [#/volume] in Blood 4.5 x10e3/uL 1.4-7.0 by Automated count (test code = 751-8) Lymphocytes [#/volume] in Blood 2.1 x10e3/uL 0.7-3.1 by Automated count (test code = 731-0) Monocytes [#/volume] in Blood 0.4 x10e3/uL 0.1-0.9 by Automated count (test code = 742-7) Eosinophils [#/volume] in Blood 0.2 x10e3/uL 0.0-0.4 by Automated count (test code = 711-2) Basophils [#/volume] in Blood 0.0 x10e3/uL 0.0-0.2 by Automated count (test code = 704-7) Immature granulocytes/100 0 % not estab. leukocytes in Blood by Automated count (test code = 01721-6) Immature granulocytes 0.0 x10e3/uL 0.0-0.1 [#/volume] in Blood by Automated count (test code = 82099-6) Nucleated erythrocytes/100 relay shop supervisor leukocytes [Ratio] in Blood by Automated count (test code = 16696-8) Morphology [Interpretation] in relay shop supervisor Blood Narrative (test code = 97160-4) [facility]healthTSH [id number] 00:00:00 Test Item Value Reference Range Interpretation Comments Thyrotropin [Units/volume] in 1.170 uIU/mL 0.450-4.500 Serum or Plasma by Detection limit <= 0.005 mIU/L (test code = 02998-2) [facility]Erythrocyte sedimentation rate 2022-10-25 00:00:00 Test Item Value Reference Range Interpretation Comments Erythrocyte sedimentation rate by 12 mm/HR 0-40 Westergren method (test code = 4537-7) [facility]C reactive protein [Mass/volume] in Serum or [id number] 00:00:00 Test Item Value Reference Range Interpretation Comments C reactive protein [Mass/volume] in 10 mg/L 0-10 Serum or Plasma (test code = 1988-) [facility] ProgramMicroalbumin/Creatinine [Mass Ratio] in [id number] 12:33:00 Test Item Value Reference Range Interpretation Comments creatinine, urine random (test 213.2 mg/dL 28-217 code = creatinine, urine random) microalbumin random (test code = < 12.0 0-20 microalbumin random) microalb/creatinine ratio (test tnp code = microalb/creatinine ratio) [facility] - Serum or Plasma 2022-10-06 12:33:00 Test Item Value Reference Range Interpretation Comments glucose (test code = glucose) 117 mg/dL 74-106 H blood urea nitrogen (test code = 17 mg/dL 6-20 blood urea nitrogen) osmolality calculated,serum (test 280 mOsm/kg 280-300 code = osmolality calculated,serum) creatinine (test code = 0.73 mg/dL 0.50-0.90 creatinine) glomerular filtration rate (test > 60.00 code = glomerular filtration rate) BUN/creatinine ratio (test code = 23.3 12.0-20.0 H BUN/creatinine ratio) sodium level (test code = sodium 139 mmol/L 135-145 level) potassium level (test code = 3.7 mmol/L 3.5-5.2 potassium level) chloride level (test code = 101 mmol/L 98-108 chloride level) CO2 (test code = CO2) 28 mmol/L 21-32 anion gap (test code = anion gap) 13.7 mEq/L 12.0-20.0 calcium level (test code = 9.2 mg/dL 8.6-10.0 calcium level) total protein (test code = total 7.0 g/dL 6.6-8.7 protein) albumin (test code = albumin) 3.9 g/dL 3.5-5.2 globulin (test code = globulin) 3.1 g/dL 1.5-4.5 A/G ratio (test code = A/G ratio) 1.3 >1.0 bilirubin,total (test code = 0.5 mg/dL 0.0-1.2 bilirubin,total) AST/SGOT (test code = AST/SGOT) 20 U/L 15-32 ALT/SGPT (test code = ALT/SGPT) 27 U/L 0-33 alkaline phosphatase, total (test 72 U/L 35-105 code = alkaline phosphatase, total) [facility] [id number] 12:33:00 Test Item Value Reference Range Interpretation Comments cholesterol level (test code = 181 mg/dL 150-200 cholesterol level) triglycerides level (test code = 106 mg/dL <150 triglycerides level) HDL cholesterol (test code = HDL 47 mg/dL >65 L cholesterol) Cholesterol in LDL [Mass/volume] in 119 mg/dL <100 H Serum or Plasma (test code = 2089-1) cholesterol risk ratio (test code = 3.851 cholesterol risk ratio) [facility] [id number] 12:15:00 Test Item Value Reference Range Interpretation Comments Hemoglobin A1c/Hemoglobin.total in 6.4 % 4.0-6.0 H Blood (test code = 4548-4) [facility]
[2023-01-29] MEDS ORDERED: IBUPROFEN 400 MG TAB ONE (17:03)
--- NOTE | 2023-01-29 18:40 | RAD REPORT ---
EXAM DESCRIPTION: RAD - Knee Left 3 View - 01/29/2023 5:36 pm CLINICAL HISTORY: Left knee pain FINDINGS: No fracture or dislocation is seen.
--- NOTE | 2023-01-29 18:43 | ER ---
Nurse's Notes [facility] Name: Evette Bosch Age: 52 yrs Sex: Female : 1970 Arrival Date: 01/29/2023 Time: 16:43 Bed 15 Private MD: Diagnosis: Pain in left knee;Fall on same level from slipping, tripping and stumbling without subsequent striking against object Presentation: 01/29 16:45 Chief complaint: EMS states: Slipped in water at [employer] and landed with left leg tucked hb underneath buttocks, now c/o severe left knee pain that radiates to left thigh. Unable to bear weight. Denies other injuries. 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 Coronavirus screen: At this time, the client does not indicate any symptoms associated with coronavirus-19. Ebola Screen: No symptoms or risks identified at this time. Initial Sepsis Screen: Does the patient meet any 2 criteria? No. Patient's initial sepsis screen is negative. Does the patient have a suspected source of infection? No. Patient's initial sepsis screen is negative. Risk Assessment: Do you want to hurt yourself or someone else? Patient reports no desire to harm self or others. Onset of symptoms was January 29, 2023. 16:45 Method Of Arrival: EMS: [facility] hb 16:45 Acuity: EDELMIRA 4 hb Triage Assessment: 16:48 General: Appears in no apparent distress. uncomfortable, Behavior is cooperative, hb anxious. Pain: Pain currently is 10 out of 10 on a pain scale. EENT: No signs and/or symptoms were reported regarding the EENT system. Neuro: Level of Consciousness is awake, alert, obeys commands, Oriented to person, place, time, situation. Cardiovascular: Patient's skin is warm and dry. Respiratory: Respiratory effort is even, unlabored, Respiratory pattern is regular, symmetrical. GI: No signs and/or symptoms were reported involving the gastrointestinal system. : No signs and/or symptoms were reported regarding the genitourinary system. Derm: Skin is pink, warm \T\ dry. Musculoskeletal: Reports severe left knee pain. 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 - Social history:: Smoking status: Patient denies any tobacco usage or history of. Screenin:49 [facility] ED Fall Risk Assessment (Adult) Score/Fall Risk Level 0 - 2 = Low Risk hb Oriented to surroundings, Maintained a safe environment. Abuse screen: Denies threats or abuse. Denies injuries from another. Nutritional screening: No deficits noted. Tuberculosis screening: No symptoms or risk factors identified. Assessment: 16:49 General: See triage assessment . hb 18:26 Reassessment: Patient appears in no apparent distress at this time. Patient and/or hb family updated on plan of care and expected duration. Pain level reassessed. Patient is alert, oriented x 3, equal unlabored respirations, skin warm/dry/pink. 18:30 Reassessment: P 188/11, pt asymptomatic, Linda GUM REMOVER notified, no new orders at this hb time. Vital Signs: 16:45 BP 222 / 117; Pulse 88; Resp 16; Temp 98.1; Pulse Ox 98% on R/A; Weight 83.91 kg; hb Height 5 ft. 5 in. ; Pain 10/10; 17:36 BP 177 / 99; Pulse 76; Resp 15; Pulse Ox 99% ; hb 18:34 BP 181 / 111; Pulse 74; Resp 15; Pulse Ox 100% ; jl7 16:45 Body Mass Index 30.79 (83.91 kg, 165.1 cm) hb 16:45 Pain Scale: Adult hb ED Course: 16:45 Patient arrived in ED. hb 16:47 Linda Pascual FNP-C is PHCP. kb 16:47 Juan Antonio Moreno MD is Attending Physician. kb 16:47 Triage completed. hb 16:47 Arm band placed on. hb 16:49 Patient has correct armband on for positive identification. Provided Education on: . hb 16:51 Fanta Chamberlain, RN is Primary Nurse. hb 17:38 Knee Left 3 View XRAY In Process Unspecified. EDMS 19:09 No provider procedures requiring assistance completed. Patient did not have IV access lg3 during this emergency room visit. Administered Medications: 17:01 Drug: Ibuprofen PO 800 mg Route: PO; hb Medication: 16:49 VIS not applicable for this client. hb Outcome: 18:42 Discharge ordered by MD. salter 19:09 Discharged to home via wheelchair, with crutches, with significant other. lg3 19:09 Condition: stable 19:09 Discharge instructions given to patient, Instructed on discharge instructions, follow up and referral plans. medication usage, Demonstrated understanding of instructions, follow-up care, medications, crutch walking, Prescriptions given X 2. 19:09 Patient left the ED. lg3 Signatures: Dispatcher [employer] EDMS Linda Pascual, REPAIRER SCREEN CRUSHER-C REPAIRER SCREEN CRUSHER-CkFanta Lucio RN RN Todd Pelaez RN RN jlMargaux Josue, MONICA RN lg3 Corrections: (The following items were deleted from the chart) 16:50 16:45 Acuity: EDELMIRA 3 hb hb
--- NOTE | 2023-01-29 18:43 | EDPHYS ---
Physician Documentation [facility] Name: Evette Bosch Age: 52 yrs Sex: Female : 1970 Arrival Date: 01/29/2023 Time: 16:43 Bed 15 Private MD: ED Physician Juan Antonio Moreno HPI: 01/29 18:14 This 52 yrs old Female presents to ER via EMS with complaints of Fall Injury. kb 18:14 Details of fall: The patient fell from an upright position, while walking. Onset: The kb symptoms/episode began/occurred just prior to arrival. Associated injuries: The patient sustained left knee, decreased range of motion, painful injury, swelling. Severity of symptoms: At their worst the symptoms were moderate, in the emergency department the symptoms are unchanged. The patient has not experienced similar symptoms in the past. The patient has not recently seen a physician. Pt reports she slipped and fell causing pain to left knee. 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 - Social history:: Smoking status: Patient denies any tobacco usage or history of. ROS: 18:13 Constitutional: Negative for fever, chills, and weight loss. kb 18:13 MS/extremity: Positive for decreased range of motion, pain, swelling, tenderness, of the left knee. 18:13 All other systems are negative. Exam: 18:13 Constitutional: This is a well developed, well nourished patient who is awake, alert, kb and in no acute distress. Head/Face: Normocephalic, atraumatic. ENT: Moist Mucous membranes Cardiovascular: Regular rate and rhythm with a normal S1 and S2. No gallops, murmurs, or rubs. No pulse deficits. Respiratory: Respirations even and unlabored. No increased work of breathing. Talking in full sentences Abdomen/GI: Soft, non-tender. No distention Skin: Warm, dry with normal turgor. Normal color. Neuro: Awake and alert, GCS 15, oriented to person, place, time, and situation. Moves all extremities. Normal gait. 18:13 Musculoskeletal/extremity: Extremities: grossly normal except: noted in the left knee: decreased ROM, pain, swelling, tenderness, ROM: limited active range of motion due to pain, in the left knee, Circulation is intact in all extremities. Sensation intact. Weight bearing: is unable to bear weight. Vital Signs: 16:45 BP 222 / 117; Pulse 88; Resp 16; Temp 98.1; Pulse Ox 98% on R/A; Weight 83.91 kg; hb Height 5 ft. 5 in. ; Pain 10/10; 17:36 BP 177 / 99; Pulse 76; Resp 15; Pulse Ox 99% ; hb 18:34 BP 181 / 111; Pulse 74; Resp 15; Pulse Ox 100% ; jl7 16:45 Body Mass Index 30.79 (83.91 kg, 165.1 cm) hb 16:45 Pain Scale: Adult hb MDM: 16:47 Patient medically screened. kb 18:14 Differential diagnosis: abrasion, contusion, fracture, sprain, strain. Data reviewed: kb vital signs, nurses notes. Historians other than the Patient: EMS: [facility]. Counseling: I had a detailed discussion with the patient and/or guardian regarding: the historical points, exam findings, and any diagnostic results supporting the discharge/admit diagnosis, radiology results, the need for outpatient follow up, a orthopedic surgeon, to return to the emergency department if symptoms worsen or persist or if there are any questions or concerns that arise at home. 18:22 Independent interpretation of the following test(s) in the Emergency Department X-Ray: kb My interpretation is negative for fracture. 18:43 ED course: Pt asymptomatic of bp. kb 01/29 16:51 Order name: Knee Left 3 View XRAY; Complete Time: 18:40 kb 01/29 18:43 Order name: Knee Immobilizer; Complete Time: 19:00 kb 01/29 18:43 Order name: Crutches; Complete Time: 19:00 kb Administered Medications: 17:01 Drug: Ibuprofen PO 800 mg Route: PO; hb Disposition Summary: 01/29/23 18:42 Discharge Ordered Location: Home kb Condition: Stable kb Diagnosis - Pain in left knee kb - Fall on same level from slipping, tripping and stumbling without subsequent kb striking against object Followup: kb - With: Emergency Department - When: As needed - Reason: Worsening of condition Followup: kb - With: Private Physician - When: 2 - 3 days - Reason: Recheck today's complaints, Continuance of care, Re-evaluation by your physician Discharge Instructions: - Discharge Summary Sheet kb - Musculoskeletal Pain kb - Acute Knee Pain, Adult, [id number] kb Forms: - Medication Reconciliation Form kb - Thank You Letter kb - Antibiotic Education kb - Prescription Opioid Use kb - Patient Portal Instructions kb - Leadership Thank You Letter kb Prescriptions: - Diclofenac Sodium 75 mg Oral tablet,delayed release (DR/EC) - take 1 tablet by ORAL route 2 times per day As needed; 30 tablet; Refills: 0, kb Product Selection Permitted - orphenadrine citrate 100 mg Oral Tablet Sustained Release - take 1 tablet by ORAL route 2 times per day As needed; 20 tablet; Refills: 0, kb Product Selection Permitted Signatures: Dispatcher [employer] Linda Burger, POLYMERIZATION HELPER-C POLYMERIZATION HELPER-Fanta Cardenas, RN RN Todd Pelaez RN RN jl7
[2023-01-29 19:17] VITALS: TEMP 98.1
[2023-01-29 19:28] VITALS: BP 181/111; O2SAT 100
== END 2023-01-29 19:09 | disposition home or self-care (01) ==
LOC: ER 16:43
DX: M25.562 Pain in left knee (principal); W01.0XXA Fall on same level from slipping, tripping and stumbling without subsequent striking against object, initial encounter; I10 Essential (primary) hypertension; Z88.5 Allergy status to narcotic agent; Z88.8 Allergy status to other drugs, medicaments and biological substances
CPT/HCPCS: 99284